=== PATIENT | female | born 1950 | race Caucasian/White ===

== ENCOUNTER 2021-06-01 07:07 | Day surgery (SDC) | payer MEDICARE, BC ==
[~2021-06-01] VITALS: Ht 160 cm; Wt 74.9 kg
[2021-06-01] MEDS ORDERED: albumin 25% 100mL bottle x 1 IV PRN (07:35)
[2021-06-01 07:40] VITALS: BP 141/67
[2021-06-01] MEDS ORDERED: GABA300C PO (08:04)
[2021-06-01] MEDS ORDERED: NYST1000 PO (08:04)
[2021-06-01] MEDS ORDERED: FERR325T7 PO (08:04)
[2021-06-01] MEDS ORDERED: ALBU90AE INH (08:04)
[2021-06-01] MEDS ORDERED: LANS30CA56 PO (08:04)
[2021-06-01] MEDS ORDERED: ESCI-8 PO (08:04)
[2021-06-01] MEDS ORDERED: SPIR50TA5 PO (08:04)
[2021-06-01] MEDS ORDERED: ONDA-103 PO (08:04)
[2021-06-01] MEDS ORDERED: FURO20TA4 PO (08:04)
[2021-06-01] MEDS ORDERED: ADV50250 INH (08:04)
[2021-06-01] MEDS ORDERED: RIFA550T PO (08:04)
[2021-06-01] MEDS ORDERED: DILT-35 PO (08:04)
[2021-06-01] MEDS ORDERED: Tylenol PO (08:06)
[2021-06-01] MEDS ORDERED: BACL-11 PO (08:07)
[2021-06-01] MEDS ORDERED: OXAZEpam 15mg capsule PO ONE (08:10)
[2021-06-01] MEDS ORDERED: Magic Mouthwash PO (08:11)
[2021-06-01] MEDS ORDERED: Nasonex (08:13)
[2021-06-01] MEDS ORDERED: SENN-263 PO (08:14)
== END 2021-06-01 09:40 | disposition home or self-care (01) ==
LOC: SSTAY O 07:07
PROVIDERS: ATTEND Radiology Vascular & Interventional Radiology
DX: R18.8 Other ascites (principal); Z53.8 Procedure and treatment not carried out for other reasons; G89.29 Other chronic pain; Z98.890 Other specified postprocedural states; Z79.899 Other long term (current) drug therapy; Z88.0 Allergy status to penicillin; Z88.5 Allergy status to narcotic agent; Z88.8 Allergy status to other drugs, medicaments and biological substances
CPT/HCPCS: 76705

== ENCOUNTER 2021-07-19 08:11 | Day surgery (SDC) | payer MEDICARE, BC ==
[~2021-07-19] VITALS: Ht 134.6 cm; Wt 75.4 kg
[2021-07-19] VITALS (11 sets, daily range): BP systolic 96–140; BP diastolic 40–95
[~2021-07-19 08:11] MED LIST: ADV50250 INH; ALBU90AE INH; BACL-11 PO; DILT-35 PO; ESCI-8 PO; FERR325T7 PO; FURO20TA4 PO; GABA300C PO; LANS30CA56 PO; Magic Mouthwash PO; NYST1000 PO; Nasonex; ONDA-103 PO; RIFA550T PO; SENN-263 PO; SPIR50TA5 PO; Tylenol PO
[2021-07-19] MEDS ORDERED: albumin 25% 100mL bottle x 1 IV PRN (08:50)
[2021-07-19] MEDS ORDERED: MELA5TAB12 PO (08:59)
[2021-07-19] MEDS ORDERED: RIFA550T PO (08:59)
[2021-07-19] MEDS ORDERED: vitamin a PO (08:59)
[2021-07-19] MEDS ORDERED: LORazepam 1 MG tablet PO ONE (09:05)
[2021-07-19] MEDS ORDERED: Zinc Sulfate PO (09:11)
[2021-07-19] MEDS ORDERED: LANS30CA37 PO (09:11)
[2021-07-19] MEDS ORDERED: Bumex PO (09:11)
[2021-07-19] MEDS ORDERED: LORazepam 0.5 MG tablet PO ONE (09:20)
== END 2021-07-19 12:00 | disposition home or self-care (01) ==
LOC: SSTAY O 08:11
PROVIDERS: ATTEND Preventive Medicine Aerospace Medicine
DX: R18.8 Other ascites (principal); J45.909 Unspecified asthma, uncomplicated; F32.9 Major depressive disorder, single episode, unspecified; K74.60 Unspecified cirrhosis of liver; D50.9 Iron deficiency anemia, unspecified; G62.9 Polyneuropathy, unspecified; Z88.0 Allergy status to penicillin; Z88.5 Allergy status to narcotic agent; Z79.899 Other long term (current) drug therapy
CPT/HCPCS: 49083; P9047

== ENCOUNTER 2021-07-31 07:21 | Day surgery (SDC) | payer MEDICARE, BC ==
[2021-07-31] VITALS (9 sets, daily range): BP systolic 114–148; BP diastolic 37–57
[~2021-07-31] VITALS: Ht 160 cm; Wt 74.3 kg
[~2021-07-31 07:21] MED LIST changes: -ADV50250 INH; +Bumex PO; -FURO20TA4 PO; +LANS30CA37 PO; -LANS30CA56 PO; +MELA5TAB12 PO; -Magic Mouthwash PO; -NYST1000 PO; +Zinc Sulfate PO; +vitamin a PO
[2021-07-31] MEDS ORDERED: albumin 25% 100mL bottle x 1 IV PRN (07:45)
== END 2021-07-31 11:05 | disposition home or self-care (01) ==
LOC: SSTAY O 07:21
PROVIDERS: ATTEND Radiology Vascular & Interventional Radiology
DX: R18.8 Other ascites (principal); R14.0 Abdominal distension (gaseous); J45.909 Unspecified asthma, uncomplicated; F32.9 Major depressive disorder, single episode, unspecified; D50.9 Iron deficiency anemia, unspecified; G62.9 Polyneuropathy, unspecified; K74.60 Unspecified cirrhosis of liver; K75.81 Nonalcoholic steatohepatitis (NASH); Z79.899 Other long term (current) drug therapy
CPT/HCPCS: 49083

== ENCOUNTER 2021-08-13 08:49 | Day surgery (SDC) | payer MEDICARE, BC ==
[~2021-08-13] VITALS: Ht 160 cm; Wt 79.8 kg
[~2021-08-13 08:49] MED LIST changes: -Nasonex
[2021-08-13 09:00] VITALS: BP 122/64
[2021-08-13 09:10] VITALS: BP 135/60
[2021-08-13 09:25] VITALS: BP 128/64
[2021-08-13] MEDS ORDERED: albumin 25% 100mL bottle x 1 IV PRN (09:30)
[2021-08-13 09:40] VITALS: BP 131/60
[2021-08-13 09:55] VITALS: BP_SYST 132; BP_SYST 133; BP_DIAS 58; BP_DIAS 66
== END 2021-08-13 09:55 | disposition home or self-care (01) ==
LOC: SSTAY O 08:49
PROVIDERS: ATTEND Preventive Medicine Aerospace Medicine
DX: R18.8 Other ascites (principal); R14.0 Abdominal distension (gaseous); K74.60 Unspecified cirrhosis of liver; K75.81 Nonalcoholic steatohepatitis (NASH); J45.909 Unspecified asthma, uncomplicated; F32.9 Major depressive disorder, single episode, unspecified; D50.9 Iron deficiency anemia, unspecified; G62.9 Polyneuropathy, unspecified; Z88.5 Allergy status to narcotic agent; Z88.8 Allergy status to other drugs, medicaments and biological substances; Z79.899 Other long term (current) drug therapy
CPT/HCPCS: 49083

== ENCOUNTER 2021-09-10 07:28 | Day surgery (SDC) | payer MEDICARE, BC ==
[~2021-09-10] VITALS: Ht 160 cm; Wt 84.1 kg
[2021-09-10] VITALS (8 sets, daily range): BP systolic 110–146; BP diastolic 36–72
[2021-09-10] MEDS ORDERED: albumin 25% 100mL bottle x 1 IV PRN (07:55)
[2021-09-10] MEDS ORDERED: albumin (human) 25% 100 ML IV solution IV ONE (09:45)
== END 2021-09-10 11:00 | disposition home or self-care (01) ==
LOC: SSTAY O 07:28
PROVIDERS: ATTEND Preventive Medicine Aerospace Medicine
DX: R18.8 Other ascites (principal); R14.0 Abdominal distension (gaseous); J90 Pleural effusion, not elsewhere classified; K74.60 Unspecified cirrhosis of liver; J45.909 Unspecified asthma, uncomplicated; F32.9 Major depressive disorder, single episode, unspecified; D50.9 Iron deficiency anemia, unspecified; G62.9 Polyneuropathy, unspecified; Z90.710 Acquired absence of both cervix and uterus; Z98.890 Other specified postprocedural states
CPT/HCPCS: 32555; 49083; P9047

== ENCOUNTER 2021-09-21 07:45 | Day surgery (SDC) | payer MEDICARE, BC ==
[2021-09-21] VITALS (8 sets, daily range): BP systolic 117–141; BP diastolic 43–77
[~2021-09-21] VITALS: Ht 160 cm; Wt 86.0 kg
[2021-09-21] MEDS ORDERED: albumin 25% 100mL bottle x 1 IV PRN (08:20)
[2021-09-21] MEDS ORDERED: LIDOcaine 1% 30ml preserv. free vial IJ STA ×2 (09:10)
== END 2021-09-21 11:43 | disposition home or self-care (01) ==
LOC: SSTAY O 07:45
PROVIDERS: ATTEND Preventive Medicine Aerospace Medicine
DX: J90 Pleural effusion, not elsewhere classified (principal); R18.8 Other ascites; R14.0 Abdominal distension (gaseous); K74.69 Other cirrhosis of liver; J45.909 Unspecified asthma, uncomplicated; F32.9 Major depressive disorder, single episode, unspecified; D50.9 Iron deficiency anemia, unspecified; G62.9 Polyneuropathy, unspecified; K75.81 Nonalcoholic steatohepatitis (NASH); Z90.710 Acquired absence of both cervix and uterus; Z88.0 Allergy status to penicillin; Z88.8 Allergy status to other drugs, medicaments and biological substances; Z88.5 Allergy status to narcotic agent; Z79.899 Other long term (current) drug therapy
CPT/HCPCS: 32555; 49083; P9047

== ENCOUNTER 2021-09-28 06:47 | Day surgery (SDC) | payer MEDICARE, BC ==
[2021-09-28] VITALS (12 sets, daily range): BP systolic 105–133; BP diastolic 48–84
[~2021-09-28] VITALS: Ht 160 cm; Wt 87.5 kg
[~2021-09-28 06:47] MED LIST changes: +LIDOcaine 1% 30ml preserv. free vial SQ STA; +LIDOcaine 1% w/EPI 1:100,000 30ml vial (MDV) ONE
[2021-09-28] MEDS ORDERED: albumin 25% 100mL bottle x 1 IV PRN (07:15)
[2021-09-28] MEDS ORDERED: normal saline 1000ml 1,000 ML IV PRN (07:15)
[2021-09-28] MEDS ORDERED: ondansetron/PF 4mg/2ml inj IV ONE (10:15)
[2021-09-28] MEDS ORDERED: ondansetron/PF 4mg/2ml inj ONE (10:15)
== END 2021-09-28 11:25 | disposition home or self-care (01) ==
LOC: SSTAY O 06:47
PROVIDERS: ATTEND Radiology Vascular & Interventional Radiology
DX: J90 Pleural effusion, not elsewhere classified (principal); R18.8 Other ascites; R14.0 Abdominal distension (gaseous); K75.81 Nonalcoholic steatohepatitis (NASH); K74.60 Unspecified cirrhosis of liver; J45.909 Unspecified asthma, uncomplicated; F32.9 Major depressive disorder, single episode, unspecified; D50.9 Iron deficiency anemia, unspecified; G62.9 Polyneuropathy, unspecified; Z90.710 Acquired absence of both cervix and uterus; Z79.899 Other long term (current) drug therapy
CPT/HCPCS: 32555; 49083; J2405; P9047